=== PATIENT | female | born 1960 | race Caucasian/White ===

== ENCOUNTER 2017-08-23 13:01 | Outpatient (CLI) | payer BC ==
--- NOTE | 2017-08-23 13:42 | XRay Report ---
Lumbar spine 2 views: History: Acute low back pain. Findings: Normal height of vertebral bodies and intervertebral disc. Normal articular surfaces. No fracture. No paravertebral mass or soft tissue calcification. Impression: No definite bony or articular abnormality lumbar spine
== END 2017-08-23 13:02 | disposition home or self-care (01) ==
LOC: XRAY 13:01
PROVIDERS: ATTEND Nurse Practitioner
DX: M54.41 Lumbago with sciatica, right side (principal)
CPT/HCPCS: 72100